=== PATIENT | female | born 1960 | race Caucasian/White ===

== ENCOUNTER → 2023-09-03 | Outpatient (CLI) | payer BC, MEDICAID ==
[2023-09-03 08:07] LABS: HEMATOCRIT 40.3 % (36.0-47.0); HEMOGLOBIN 13.8 g/dl (12.0-15.5); MEAN CORPUSCULAR HEMOGLOBIN 34.5 pg (27.0-33.0); MEAN CORPUSCULAR HGB CONC 34.2 g/dl (32.0-36.5); MEAN CORPUSCULAR VOLUME 100.8 fl (80.0-96.0); PLATELET COUNT, AUTOMATED 159 10^3/uL (150-450); WHITE BLOOD COUNT 3.7 10^3/uL (4.0-10.0)
[2023-09-03 08:36] LABS: ALBUMIN 4.2 G/DL (3.2-5.2); ALKALINE PHOSPHATASE 59 U/L (46-116); ALT/SGPT 62 U/L (7.0-40); AST/SGOT 30 U/L (<34); BILIRUBIN,TOTAL 0.7 MG/DL (0.3-1.2); BLOOD UREA NITROGEN 14 MG/DL (9-23); CALCIUM LEVEL 9.1 MG/DL (8.3-10.6); CARBON DIOXIDE LEVEL 29 MMOL/L (20-31); CHLORIDE LEVEL 106 MMOL/L (98-107); CHOLESTEROL LEVEL 222 MG/DL (<200); CHOLESTEROL RISK RATIO 2.13 (<5); GLOMERULAR FILTRATION RATE > 60.0 (>45); GLUCOSE, FASTING 103 MG/DL (74-106); HDL CHOLESTEROL 103.8 MG/DL (>40); LDL CHOLESTEROL 104.8 MG/DL (<100); NON-HDL-C 118.2 MG/DL; POTASSIUM SERUM 3.9 MMOL/L (3.5-5.1); SODIUM LEVEL 141 MMOL/L (136-145); THYROID STIMULATING HORMONE 3.019 uIU/ML (0.55-4.78); TOTAL 25(OH) VITAMIN D 36.9 NG/ML (20.0-100.0); TOTAL PROTEIN 6.7 G/DL (5.7-8.2); TRIGLYCERIDES LEVEL 67 MG/DL (<150)
[2023-09-03 08:49] LABS: HEMOGLOBIN A1c 4.6 % (4.0-6.0)
== END ==
LOC: M RAD 07:26
PROVIDERS: ATTEND Family Medicine
DX: I10 Essential (primary) hypertension (principal); D64.9 Anemia, unspecified; R53.83 Other fatigue

== ENCOUNTER → 2023-12-06 | Outpatient (CLI) | payer BC, MEDICAID | LOC: M WHC 09:29 | PROVIDERS: ATTEND Obstetrics & Gynecology | DX: Z12.31 Encounter for screening mammogram for malignant neoplasm of breast (principal); R92.323 Mammographic fibroglandular density, bilateral breasts ==

== ENCOUNTER → 2024-02-28 | Outpatient (CLI) | payer BC, MEDICAID | LOC: M RAD 10:05 | PROVIDERS: ATTEND Family Medicine | DX: M25.562 Pain in left knee (principal); M79.89 Other specified soft tissue disorders ==

== ENCOUNTER 2024-03-18 06:40 | Day surgery (SDC) | payer BC, MEDICAID ==
[~2024-03-18] VITALS: Ht 162.6 cm; Wt 58.9 kg
[~2024-03-18 06:40] MED LIST: ACYC200C8 PO; ALBU8.5H INH; ESTR1DIS5 TOP; IBUP80TA PO; LEVO50TA5 PO; NS 1,000 ML IV ONE; ROSU40TA63 PO
[2024-03-18 07:47] VITALS: TEMP 97
[2024-03-18] MEDS ORDERED: propofoL 200 MG/20 ML VIAL As Ordered ONE (07:53)
[2024-03-18] MEDS ORDERED: LIDOCAINE 2% 100MG/5ML SDV (FOR ANES.) As Ordered ONE (07:53)
[2024-03-18 08:02] VITALS: BP 156/99; O2SAT 100
== END 2024-03-18 08:06 | disposition home or self-care (01) ==
LOC: M OPP 06:40
PROVIDERS: ATTEND Internal Medicine Gastroenterology
DX: K22.70 Barrett's esophagus without dysplasia (principal); K29.70 Gastritis, unspecified, without bleeding; K22.89 Other specified disease of esophagus; E03.9 Hypothyroidism, unspecified; J45.909 Unspecified asthma, uncomplicated; E78.5 Hyperlipidemia, unspecified; Z87.891 Personal history of nicotine dependence; Z79.2 Long term (current) use of antibiotics; Z79.1 Long term (current) use of non-steroidal anti-inflammatories (NSAID); Z79.51 Long term (current) use of inhaled steroids; Z79.890 Hormone replacement therapy; Z79.899 Other long term (current) drug therapy

== ENCOUNTER 2024-04-17 07:23 | Outpatient (RCR) | payer BC, MEDICAID ==
[~2024-04-17 07:23] MED LIST changes: -NS 1,000 ML IV ONE
== END 2024-04-20 ==
LOC: M PT 07:23
PROVIDERS: ATTEND Orthopaedic Surgery
DX: M23.222 Derangement of posterior horn of medial meniscus due to old tear or injury, left knee (principal); M94.262 Chondromalacia, left knee

== ENCOUNTER 2024-05-07 07:40 | Outpatient (RCR) | payer BC, MEDICAID ==
[~2024-05-07 07:40] MED LIST changes: -ROSU40TA63 PO; +ROSU40TA81 PO
== END 2024-05-21 ==
LOC: M PT 07:40
PROVIDERS: ATTEND Orthopaedic Surgery
DX: M23.222 Derangement of posterior horn of medial meniscus due to old tear or injury, left knee (principal); M94.262 Chondromalacia, left knee

== ENCOUNTER 2024-06-19 14:08 | Outpatient (RCR) | payer BC, MEDICAID | END 2024-06-21 | LOC: M PT 14:08 | PROVIDERS: ATTEND Orthopaedic Surgery | DX: M23.232 Derangement of other medial meniscus due to old tear or injury, left knee (principal); Z47.89 Encounter for other orthopedic aftercare ==

== ENCOUNTER → 2024-07-21 | Outpatient (RCR) | payer MEDICARE, MEDICAID | LOC: M PT 06-27 10:58 | PROVIDERS: ATTEND Orthopaedic Surgery | DX: M23.232 Derangement of other medial meniscus due to old tear or injury, left knee (principal) ==

== ENCOUNTER 2024-08-13 08:17 | Outpatient (RCR) | payer MEDICAID, MEDICARE | END 2024-08-21 | LOC: M PT 08:17 | PROVIDERS: ATTEND Orthopaedic Surgery | DX: M23.232 Derangement of other medial meniscus due to old tear or injury, left knee (principal) ==

== ENCOUNTER → 2024-12-17 | Outpatient (CLI) | payer MEDICARE | LOC: M WHC 10:43 | PROVIDERS: ATTEND Obstetrics & Gynecology | DX: Z12.31 Encounter for screening mammogram for malignant neoplasm of breast (principal); Z13.820 Encounter for screening for osteoporosis; N95.1 Menopausal and female climacteric states; R92.323 Mammographic fibroglandular density, bilateral breasts; M85.851 Other specified disorders of bone density and structure, right thigh ==

== ENCOUNTER → 2025-07-28 | Outpatient (REF) | payer MEDICARE ==
[~2025-07-28] MED LIST changes: +ACYC200C10 PO; -ACYC200C8 PO
== END ==
LOC: M SFHCPLAZ 08:01
PROVIDERS: ATTEND Family Medicine
DX: Z53.9 Procedure and treatment not carried out, unspecified reason (principal)

== ENCOUNTER → 2025-09-10 | Outpatient (CLI) | payer MEDICARE | LOC: M SOG 07:43 | PROVIDERS: ATTEND Neuromusculoskeletal Medicine, Sports Medicine | DX: M25.511 Pain in right shoulder (principal); M25.512 Pain in left shoulder ==